=== PATIENT | female | born 2000 | race Caucasian/White ===

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

== ENCOUNTER 2022-04-23 13:58 | Emergency (ER) | payer OTHER, SELFPAY ==
[2022-04-23 14:05] VITALS: BP 129/72; PULSE 83; RESP 16; TEMP 36.8; O2SAT 99; BMI 16.9
--- NOTE | 2022-04-23 14:19 | CT_ITS ---
FINAL REPORT TECHNIQUE: After the administration of intravenous contrast, axial images were obtained through the abdomen and pelvis by computed tomography. This study was performed with technique to keep radiation doses as low as reasonably achievable, (ALARA). Individualized dose reduction techniques using automated exposure control or adjustment of the MA and/or KV according to the patient's size were employed. CLINICAL HISTORY: LLQ pain, bloody bowel movement FINDINGS: Abdomen: The lung bases are clear. The liver is normal in size and attenuation. There is nonspecific gallbladder wall thickening. The spleen is unremarkable. The adrenals are normal. The pancreas is unremarkable. The kidneys enhance appropriately. The aorta is normal in caliber. There is no free fluid or adenopathy. A large amount of stool seen throughout the colon. Pelvis: The appendix is not well visualized. There are no secondary findings of appendicitis. The uterus is heterogeneous but nonspecific. There is a probable small cyst in the right ovary. There is a small amount of pelvic free fluid which may be physiologic or reactive. The urinary bladder is unremarkable. IMPRESSION: Large amount of stool throughout the colon. Probable small right ovarian cyst with small amount of pelvic free fluid which may be physiologic or reactive. Nonspecific gallbladder wall thickening. Reviewed, Interpreted and Dictated by Collin Kaplan III, MD Transcribed by Priscilla Mckinnon Authenticated and [facility]
--- NOTE | 2022-04-23 14:20 | HMH.EDGENADL ---
ED Disposition Clinical Impression: Rectal bleed Disposition: Home, Self-Care Condition on Discharge: Good Additional Instructions: At this time it was felt you are safe to be discharged home. If new or worsening symptoms please do not hesitate to return to the emergency department. Please follow-up with your family doctor on Tuesday. Referrals: Atul Tai MD [Primary Care Provider] - - Critical Care Critical Care Time: No Attestation: On 04/23/22, the high probability of a clinically significant, sudden or life threatening deterioration of the following system(s) required my full and direct attention, intervention and personal management. The time I documented below is in addition to time spent performing reported procedures but includes the following listed in this critical care notation. Medical Decision Making - Kana Inquiry Pt receiving controlled substance: No Vital Signs: 04/23/22 14:05 04/23/22 14:30 04/23/22 15:01 Temperature 98.2 F Temperature Source Oral Pulse Rate 63 69 Pulse Rate [Right Radial] 83 Respiratory Rate 16 Blood Pressure 112/65 107/55 L Blood Pressure [Right Arm] 129/72 Blood Pressure Mean 80 73 Blood Pressure Mean [Right Arm] 91 Blood Pressure Source [Right Arm] Automatic Cuff Blood Pressure Position [Right Arm] Sitting 02 Sat by Pulse Oximetry 99 100 99 Oxygen Delivery Method Room Air Room Air 04/23/22 15:51 Temperature Temperature Source Pulse Rate 61 Pulse Rate [Right Radial] Respiratory Rate Blood Pressure 113/68 Blood Pressure [Right Arm] Blood Pressure Mean 79 Blood Pressure Mean [Right Arm] Blood Pressure Source [Right Arm] Blood Pressure Position [Right Arm] 02 Sat by Pulse Oximetry 99 Oxygen Delivery Method Room Air - Lab Data Lab Results 04/23/22 14:17: Stool Occult Blood Negative 04/23/22 14:25: WBC 6.0, RBC 4.32, Hgb 13.9, Hct 43.1, MCV 99.7 H, MCH 32.1 H, MCHC 32.2, RDW 12.9, Plt Count 333, MPV 7.7, Neut % (Auto) 65.2, Lymph % (Auto) 24.9, [place] % (Auto) 4.9, Eos % (Auto) 3.9, Baso % (Auto) 1.1, Neut # (Auto) 3.9, Lymph # (Auto) 1.5, [place] # (Auto) 0.3, Eos # (Auto) 0.2, Baso # (Auto) 0.1 04/23/22 14:25: Sodium 138, Potassium 3.7, Chloride 105, Carbon Dioxide 28, Anion Gap 8.7, BUN 7, Creatinine 0.80, Estimated Creat Clear 83, Estimated GFR 92, Est GFR ( Amer) 112, Glucose 93, Calcium 9.5, Total Bilirubin 0.2, AST 27, ALT 18, Alkaline Phosphatase 25 L, Total Protein 7.5, Albumin 4.4, Globulin 3.1, Albumin/Globulin Ratio 1.4 04/23/22 14:25: PT 12.2, INR 1.09 04/23/22 14:25: Serum HCG, Qual Negative 04/23/22 14:55: Lactate 1.2 Result diagrams: 04/23/22 14:25 04/23/22 14:25 Orders (Tests/Meds): ED MEDICATIONS Discontinued Medications Generic Name Dose Route Start Last Admin Trade Name Freq PRN Reason Stop Dose Admin Acetaminophen 500 mg 04/23/22 14:19 04/23/22 14:59 Acetaminophen 500mg Tab PO 04/23/22 14:20 500 mg ONCE ONE Administration Iopamidol 75 ml 04/23/22 15:37 04/23/22 15:38 Iopamidol-370 (76%);100ml Bottle IV 04/23/22 15:38 75 ml ONCE ONE Administration Sodium Chloride 10 ml 04/23/22 15:37 04/23/22 15:38 Sodium Chloride 0.9% 10ml Syr (Rad Only) IV 04/23/22 15:38 10 ml ONCE ONE Administration Medical Decision Narrative: In summary patient is a 21-year-old female with past medical history described below presents emergency department for evaluation of blood in her stool. Patient's hemodynamically stable nontoxic-appearing upon arrival. Differential diagnosis includes internal hemorrhoids, menstruation, colitis, diverticulosis, among others. Initial work-up will be conducted with hematologic labs, stool occult blood, CT of the abdomen pelvis with IV contrast. Work-up is reviewed by me, hematologic labs are nonactionable, occult blood negative, CT the abdomen pelvis shows no acute pathology that would explain the patient's symptoms. There is evidence of a thi
[2022-04-23 14:23] LABS: Occult Blood,Stool Negative (Negative)
[2022-04-23 14:30] VITALS: BP 112/65; PULSE 63; O2SAT 100
[2022-04-23 14:36] VITALS: BMI 16.9
[2022-04-23 14:37] LABS: Basophils # 0.1 K/mm3 (0-0.2); Basophils % 1.1 % (0.1-2.0); Eosinophils # 0.2 K/mm3 (0.0-0.4); Eosinophils % 3.9 % (0.1-12.0); Hematocrit 43.1 % (37.0-47.0); Hemoglobin 13.9 g/dL (12.2-16.2); Lymphocytes # 1.5 K/mm3 (0.7-4.5); Lymphocytes % 24.9 % (10-50); Mean Corpuscular HGB Conc 32.2 g/dL (31.8-35.4); Mean Corpuscular Hemoglobin 32.1 pg (27.0-31.2); Mean Corpuscular Volume 99.7 fl (81-99); Mean Platelet Volume 7.7 fl (7.4-10.4); Monocytes # 0.3 K/mm3 (0.1-1.0); Monocytes % 4.9 % (1.7-9.3); Neutrophils # 3.9 K/mm3 (1.8-7.8); Neutrophils % 65.2 % (37.0-80.0); Platelet Count 333 K/mm3 (142-424); Red Blood Count 4.32 M/mm3 (4.20-5.40); Red Cell Distribution Width 12.9 % (11.5-17.5)
[2022-04-23 14:41] LABS: Alanine Aminotransferase 18 U/L (12-78); Albumin Level 4.4 g/dl (3.5-5.0); Albumin/Globulin Ratio 1.4 (1.1-1.8); Alkaline Phosphatase 25 U/L (38-126); Anion Gap 8.7 mEq/L (5-15); Aspartate Amino Transferase 27 U/L (14-36); Bilirubin,Total 0.2 mg/dl (0.2-1.3); Blood Urea Nitrogen 7 mg/dl (7-17); Calcium 9.5 mg/dl (8.4-10.2); Carbon Dioxide 28 mmol/L (22.0-30.0); Chloride 105 mmol/L (98-107); Creatinine Clearance Estimated 83 mL/min (50-200); Estimated Glomerular Filt Rate 92 ml/min (>60); GFR (African American) 112 ML/MIN (>60); Globulin 3.1 g/dL (1.3-3.2); Glucose 93 mg/dl (74-100); Potassium 3.7 mmoL/L (3.5-5.1); Sodium 138 mmol/L (136-145); Total Protein,Serum 7.5 g/dl (6.3-8.2)
[2022-04-23 14:44] LABS: INR 1.09 (0.9-1.1); Prothrombin Time 12.2 seconds (10.1-12.5)
--- NOTE | 2022-04-23 14:48 | HMH.ITSTN ---
spoke to BLANCA hathaway about getting HCG on patient prior for the ct scan
--- NOTE | 2022-04-23 14:56 | PC.NURSE ---
lactic acid tube drawn and sent to lab at this time.
[2022-04-23 15:01] VITALS: BP 107/55; PULSE 69; O2SAT 99
[2022-04-23 15:15] LABS: HCG Qualitative, Serum Negative (Negative)
[2022-04-23 15:18] LABS: Lactic Acid 1.2 mmol/L (0.7-2.1)
--- NOTE | 2022-04-23 15:37 | PC.NURSE ---
pt return from radiology
[2022-04-23 15:51] VITALS: BP 113/68; PULSE 61; O2SAT 99
--- NOTE | 2022-04-23 15:54 | PC.NURSE ---
rounded on pt at this time, pt resting in bed, mother at BS. Pt states no needs at this time. updated pt that we are waiting on Ct scan results. Will continue to monitor
--- NOTE | 2022-04-23 16:45 | PC.NURSE ---
preliminary CT result given to KERRY ARREDONDO
[2022-04-23 17:25] VITALS: BP 124/73; PULSE 69; RESP 15; TEMP 36.8; O2SAT 99
== END 2022-04-23 17:31 | disposition home or self-care (01) ==
PROVIDERS: Emergency Provider Emergency Medicine; PCP Internal Medicine Adolescent Medicine
DX: K62.5 Hemorrhage of anus and rectum (principal); N83.209 Unspecified ovarian cyst, unspecified side; R19.7 Diarrhea, unspecified; Z79.890 Hormone replacement therapy; Z88.1 Allergy status to other antibiotic agents; Z88.3 Allergy status to other anti-infective agents; Z82.49 Family history of ischemic heart disease and other diseases of the circulatory system; Z85.6 Personal history of leukemia; Z80.9 Family history of malignant neoplasm, unspecified
CPT/HCPCS: 74177; 80053; 82272; 83605; 84703; 85025; 85610; 99283; G0328; Q9967

== ENCOUNTER → 2022-08-03 09:36 | Outpatient (CLI) | payer OTHER, SELFPAY ==
[2022-08-03 10:15] LABS: Basophils # 0.1 K/mm3 (0-0.2); Eosinophils # 0.2 K/mm3 (0.0-0.4); Eosinophils % 3.9 % (0.1-12.0); Hematocrit 41.3 % (37.0-47.0); Hemoglobin 13.4 g/dL (12.2-16.2); Lymphocytes # 1.5 K/mm3 (0.7-4.5); Lymphocytes % 28.4 % (10-50); Mean Corpuscular HGB Conc 32.3 g/dL (31.8-35.4); Mean Corpuscular Volume 99.1 fl (81-99); Monocytes # 0.3 K/mm3 (0.1-1.0); Monocytes % 5.5 % (1.7-9.3); Neutrophils # 3.3 K/mm3 (1.8-7.8); Neutrophils % 61.2 % (37.0-80.0); Platelet Count 306 K/mm3 (142-424); Red Blood Count 4.17 M/mm3 (4.20-5.40); Red Cell Distribution Width 12.3 % (11.5-17.5); White Blood Count 5.4 K/mm3 (4.5-13.0)
[2022-08-03 10:30] LABS: Chloride 104 mmol/L (98-107); Potassium 3.8 mmoL/L (3.5-5.1); Sodium 141 mmol/L (136-145)
[2022-08-03 10:32] LABS: Alanine Aminotransferase 16 U/L (12-78); Aspartate Amino Transferase 24 U/L (14-36); Blood Urea Nitrogen 9 mg/dl (7-17); Estimated Glomerular Filt Rate 107 ml/min (>60); GFR (African American) 129 ML/MIN (>60)
[2022-08-03 10:33] LABS: Albumin Level 4.2 g/dl (3.5-5.0); Albumin/Globulin Ratio 1.4 (1.1-1.8); Alkaline Phosphatase 24 U/L (38-126); Anion Gap 13.8 mEq/L (5-15); Bilirubin,Total 0.3 mg/dl (0.2-1.3); Calcium 9.3 mg/dl (8.4-10.2); Carbon Dioxide 27 mmol/L (22.0-30.0); Globulin 2.9 g/dL (1.3-3.2); Glucose 81 mg/dl (74-100); Total Protein,Serum 7.1 g/dl (6.3-8.2)
== END ==
PROVIDERS: PCP Family Medicine; Visit Provider Family Medicine
DX: R55 Syncope and collapse (principal); E16.2 Hypoglycemia, unspecified
CPT/HCPCS: 36415; 80053; 84443; 85025

== ENCOUNTER 2024-09-12 10:33 | Emergency (ER) | payer OTHER, SELFPAY ==
[2024-09-12 10:58] VITALS: BP 126/79; PULSE 98; RESP 16; TEMP 37.1; O2SAT 97; BMI 19.0
[2024-09-12 11:04] LABS: UTC Influenza A Antigen Positive (Negative); UTC Influenza B Antigen Negative (Negative)
--- NOTE | 2024-09-12 11:07 | ED_ITS ---
Discharge Plan Disposition Patient Disposition: Home, Self-Care Condition: Good Prescriptions Prescriptions: New oseltamivir [Tamiflu] 75 mg capsule 75 mg PO BID 5 Days Qty: 10 0RF jhhccabapikpgja-retijhtec-FV [Bromfed DM] 2-30-10 mg/5 mL Syrup 5 ml PO Q6H PRN (Reason: Cough) Qty: 240 0RF ondansetron 4 mg Tablet,Disintegrating 4 mg PO Q8H PRN (Reason: Nausea) Qty: 12 0RF No Action norethindrone-e.estradiol-iron [Taytulla] 1 mg-20 mcg (24)/75 mg (4) capsule 1 cap PO DAILY Qty: 28 11RF hydroxyzine HCl 25 mg tablet 25 mg PO DAILY Referrals Follow up/Referrals: Jessica Chilel PA [Primary Care Provider] - See instructions Activity Restrictions/Add. Instructions Additional Instructions/Restrictions: Drink plenty of fluids. Take tylenol or ibuprofen for pain or fever. Take the medications as directed. Follow up with your regular doctor. GO TO THE ER FOR ANY WORSENING SYMPTOMS Clinical Impressions Clinical Impression: Influenza A Stand Alone Forms Stand Alone Forms: Work/School Release Instructions Patient Instructions: Influenza, DI for Influenza -- Adult, Oseltamivir Print Language Print Language: Maltese Discharge ED Provider: James Lew [facility] General Stated complaint: cough, runny nose, body aches, chills Mode of Arrival: Ambulatory Source of Information: Patient Time Seen by Provider: 09/12/24 11:04 Description of Symptoms (Recalled from Triage Doc. by RN): FLU S/S, FEVERS BA HEENT Symptoms (Recalled from RN notes): Yes Resp Symptoms (Recalled from RN notes): Yes Skin Symptoms (Recalled from RN notes): No MS Symptoms (Recalled from RN notes): No Functional Status (Recalled from RN notes): WNL Related Data Home Medications ?Medication ?Instructions ?Recorded ?Confirmed hydroxyzine HCl 25 mg tablet 25 mg PO DAILY 09/12/24 09/12/24 Previous Rx's ?Medication ?Instructions ?Recorded norethindrone 1 mg-ethin. 1 cap PO DAILY #28 caps 08/28/21 estradiol 20 mcg (24)-iron 75 mg (4) capsule (Taytulla) aeehjljbrmbpzkl-bzgekxdfjwsexqi-LD 5 ml PO Q6H PRN Cough #240 mL 09/12/24 2 mg-30 mg-10 mg/5 mL oral syrup (Bromfed DM) ondansetron 4 mg disintegrating 4 mg PO Q8H PRN Nausea #12 tabs 09/12/24 tablet oseltamivir 75 mg capsule (Tamiflu) 75 mg PO BID 5 days #10 caps 09/12/24 Allergies Allergy/AdvReac Type Severity Reaction Status Date / Time ceftriaxone (From Rocephin) Allergy Mild rash Verified 09/15/20 09:56 Worker's Comp Is this a Worker's Comp case?: No [facility] Disclaimer: The information contained in this section may have been updated after the patient was seen, as this information can be updated by other users. Social History Smoking Status: Never smoker alcohol intake: never substance use type: denies use current occupational status: student Travel in the last 8 weeks: None Have you lived/traveled outside US in past 30 days?: No Contact w/someone who lives/traveled outside US past 30 days?: No Exposure to someone with infectious disease in past 14 days?: No Do you have a fever (greater than 100.4 F or 38 C)?: No Have you tested positive for COVID-19: No Exposed to someone with COVID-19 in past 14 days?: No Do you have a sore throat?: No Do you have a cough?: Yes Do you have any weakness?: No Do you have any diarrhea?: No Are you experiencing any unusual bleeding?: No Do you have any muscle aches/pain?: Yes Do you have any abdominal pain?: No Are you experiencing loss of taste or smell?: No ROS Obtained: Yes All systems reviewed & no additional complaints except as documented Constitutional Constitutional: Reports chills and Reports fever(s) Eyes Eyes: Denies eye discharge ENT Ears, Nose, Mouth, and Throat: Reports as per HPI Cardiovascular Cardiovascular: Denies chest pain Respiratory Respiratory: Denies chest congestion and Reports cough Gastrointestinal Gastrointestingal: Reports nausea; Denies abdominal pain, constipation, cramping, diarrhea or vomiting Musculoskeletal Musculoskeletal: Denies arthralgias Integumentary/Breasts Skin/Breast: Denies rash Neurologic Neurologic: Denies paresthesias Physical Exam General General appearance: alert and in no apparent distress Head Head exam: atraumatic, normocephalic and normal inspection Eye Eye exam: Present normal appearance, PERRL and EOMI ENT ENT exam: Present mucous membranes moist and normal external ear exam Expanded ENT Exam TM/Canal exam: Bilateral TM: erythema and bulging Nose exam: Absent sinus tenderness Mouth exam: Present normal external inspection; Absent drooling Teeth exam: Present normal inspection Throat exam: Present tonsillar erythema, tonsillomegaly and tonsillar exudate Neck Neck exam: Present normal inspection, full ROM and trachea midline; Absent tenderness, meningismus or lymphadenopathy Chest Chest inspection: Present normal inspection and symmetric chest wall rise; Absent tenderness Respiratory Respiratory exam: Present normal lung sounds bilaterally; Absent respiratory distress, wheezes, stridor or accessory muscle use Cardiovascular Cardiovascular exam: Present regular rate and normal rhythm; Absent systolic murmur or diastolic murmur Abdominal Exam Abdominal exam: Present soft and normal bowel sounds; Absent distention, tenderness, guarding, rebound or rigidity Extremities Exam Extremities exam: Present normal inspection and normal capillary refill; Absent calf tenderness Back Exam Back exam: Present normal inspection and full ROM; Absent tenderness, CVA tenderness (R) or CVA tenderness (L) Neurological Exam Neurological exam: Present alert, oriented X3 and CN II-XII intact Psychiatric Psychiatric exam: Present normal affect and normal mood Skin Skin exam: Present warm, dry, intact and normal color Medical Decision Making Medical Records Medical records reviewed: No I reviewed the patient's medical records. Screening: Per USPSTF and CDC recommendations, given the prevalence of disease in our region, it is our hospital?s policy to screen for HIV and viral Hepatitis for all patients aged 18 and over and those with ongoing risk factors. Kana Inquiry Pt receiving controlled substance: No Vital Signs: 09/12/24 10:58 Temperature 98.8 F Temperature Source Oral Pulse Rate [Left Radial] 98 H Respiratory Rate 16 Blood Pressure [Left Arm] 126/79 Blood Pressure Mean [Left Arm] 94 02 Sat by Pulse Oximetry 97 Lab Data Lab results reviewed: Yes I reviewed the patient's lab results. Lab Results 09/12/24 10:55: Influenza Type A Ag Positive A, Influenza Type B Ag Negative
[2024-09-12 11:53] VITALS: BP 126/79; PULSE 98; RESP 16; TEMP 37.1
== END 2024-09-12 12:04 | disposition home or self-care (01) ==
PROVIDERS: Emergency Provider Nurse Practitioner Family; PCP Physician Assistant
DX: J09.X2 Influenza due to identified novel influenza A virus with other respiratory manifestations (principal); R50.9 Fever, unspecified; R05.9 Cough, unspecified; R11.0 Nausea
CPT/HCPCS: 87804; 99212; G0381

== ENCOUNTER 2025-08-06 15:49 | Emergency (ER) | payer OTHER, SELFPAY ==
--- OUTSIDE RECORDS SUMMARY | 2024-08-08 04:15 | XMS_ITS ---
Author Organization [facility] Address [address] [facility] [address] [place] [id number] Care Team Providers Care Diagnostic Sales Specialist Name Role Phone Darek Mg Primary Care Provider Jessica Chilel Unavailable [phone] Allergies Allergen (clinical drug ingredient) Drug/Non Drug Allergy documented on EMR Reaction Allergy Type Onset Date Status amoxicillin Amoxicillin itching/welts Drug Allergy Active Medicinal cephalosporin and acting as antibacterial agent (FN) Cephalosporins rash Drug Allergy Active REASON FOR VISIT Anxiety Medications Medication SIG (Take, Route, Fr equency, Duration) Notes Start Date End Date Status hydrOXYzine HCl 25 MG 1 tablet Orally fo ur times a day as needed 08/08/2024 Active Strattera 40 MG 1 capsule in the mor paula Orally Once a day; Duration: 30 day(s) 08/08/2024 Active Vienva 0.1-20 MG-MCG 1 tab(s) orally onc e a day; Duration: 90 days Active Problems Problem Type SNOMED Code ICD Code Onset Dates Problem Status W/U Status Risk Notes Problem Panic disorder (557815365) Panic attacks (F41.0) Active confirmed Vital Signs Weight 113.8 lbs 08/08/2024 Blood pressure systolic 110 mm Hg 08/08/20 24 Blood pressure diastolic 72 mm Hg 024 Heart Rate 70 /min 08/08/2024 Height 64.50 in 08/08/2024 BMI 19.23 kg/m2 08/08/2024 Encounters Encounter Location Date Provider Diagnosis [facility] [address] [place], [place] [id number] 08/08/2024 Jessica Chilel Attention deficit hyperactivity disorder (ADHD), unspecified ADHD type F90.9 and Panic attacks F41.0 Assessments Encounter Date Diagnosis (ICD Code) Assessment Notes Treatment Notes Treatment Clinical Notes Section Notes 08/08/2024 Attention deficit hyperactivity disorder (ADHD), unspecified ADHD type (ICD-10 - F90.9) Was on strattera in the past and did well with it. Will start back on this and see how she does. May have to add prozac as well as this was the combo she was taking in the past. 08/08/2024 Panic attacks (ICD-10 - F41.0) Will only take hydroxyzine if she has a panic attack. She was taking it once a day in the past and it was making her tired. Plan Of Treatment Medication Medication Name Sig Start Date Stop Date Notes hydrOXYzine HCl 25 MG 1 tablet Orally fo ur times a day as needed 08/08/2024 Strattera 40 MG 1 capsule in the mor paula Orally Once a day; Duration: 30 day(s) 08/08/2024 Treatment Notes Assessment Notes Attention deficit hyperactiv ity disorder (ADHD), unspecified ADHD type Was on strattera in the past and did wel l with it. Will start back on this and see how she does. May have to add prozac as well as this was the combo she was taking in the past. Panic attacks Will only take hydro xyzine if she has a panic attack. She was taking it once a day in the past and it was making her tired. Next Appt Details Follow Up: 3 Weeks, Reason: Provider Name:Jessica Whitney Emelia y, 08/28/2025 10:00:00 AM, [address] [facility] [address] [facility], [address], [place], [id number], Progress Notes * NORMA CABALLERODOB:[birth year] (25 yo F)Acc No.[id number]:08/08/2024 Progress Notes Patient: Whitney JESSENORMA Provider: VÍCTOR Cooper :2000 A ge:24 Y S ex:Female Date:08/08/2024 Address:[address] [place], [id number] Pcp:Darek Mg Subjective: * Chief Complaints: * 1 . Anxiety. * HPI: P sychology: 24 year old female presents with c/o Anxiety P t complains of having panic attacks over the last couple months. Pt states she tends to have them when she is walking to class or archery practice. Pt states they are hard to get through . Pt states she gets really clammy, tunnel vision and it feels like someone is squeezing chest . Pt states she was on hydroxyzine last year for anxiety and it did help but it made her too tired, she was falling asleep in class. c/o ADD/ADHD P t complains of having a really hard time focusing in school. Pt states she is failing in school and on the verge of losing her scholarship . * ROS: D ERMATOLOGY: no R gianfranco. n o H sanaz. G ASTROENTEROLOGY: no N ausea. n o V omiting. U ROLOGY: no D ifficulty urinating. n o B lood in urine. * Medical History: L eukemia- Remission 10/2006, Depression, Anxiety, ADHD. * Surgical History: S marlene Tap- ultiple , Bone Marrow Biopsy x 2 , Shoulder Port Placement 07/2004, Port Removed 01/2007. * Hospitalization/Major Diagno stic Procedure: P assing Out- [facility] ER 02/29/2020. * Family History: F ather: alive, drug addiction. M other: alive. P aternal Grand Father: alive. P aternal Grand Mother: alive. pt endy is biological paternal grandmother. * Social History: C URRENT TOBACCO USE S moking Status: P atient does NOT smoke. C affeine: yes, frequency: small amount. Home smoke detector use: yes. Past smoking status: no, Second hand smoke exposure: No. * Medications: T aking Vienva 0.1-20 MG-MCG Tablet 1 tab(s) orally once a day , Discontinued hydrOXYzine HCl 25 MG Tablet 1 tablet as needed Orally Once a day , Discontinued buPROPion HCl 100 MG Tablet 1 tablet Orally Twice a day , Discontinued PROzac 10 MG Capsule 1 cap(s) orally once a day , Discontinued Atomoxetine HCl 60 MG Capsule 1 capsule in the morning Orally Once a day , Medication List reviewed and reconciled with the patient * Allergies: C ephalosporins: rash, Amoxicillin: itching/welts. Objective: * Vitals: W t:113.8, Temp:97.8, BP:110/72, HR:70, Nurse:da, Ht: 64.50, BMI:19.23. * Examination: P sychology: General Appearance: N AD. G rooming : a dequate.?Eye contact : decreased. M ood : p leasant. H eart: R SR. L ungs: c lear to auscultation. N eurologic Exam: I ntact, gait normal. Assessment: * Assessment: 1. A ttention deficit hyperactivity disorder (ADHD), unspecified ADHD type - F90.9 (Primary)? 2. P anic attacks - F41.0 Plan: * Treatment: 2. P anic attacks Start hydrOXYzine HCl Tablet, 25 MG, 1 tablet, Orally, four times a day as needed, 30, Refills 1.? Notes: Will only take hydroxyzine if she has a panic attack. She was taking it once a day in the past and it was making her tired. * Follow Up: 3 Weeks * Images: Billing Information: * Visit Code: 02798 Office Visit, Est Pt., Level 3. * Procedure Codes: * Electronic signature of VÍCTOR Gomes on 08/06/2025 at 04:32 PM EST Sign off status: Pending * Provider: VÍCTOR Cooper Date: 10/08/2023 Generated for Yoko smith/Hyacinth/Baldoitting on: 10/06/2024 04:32 PM EST History and Physical Notes * HPI (History of Present Illness) Category Sub-Category Detail Notes Category Not es Psychology Anxiety Pt complains of having panic attacks over the last couple months. Pt states she tends to have them when she is walking to class or archery practice. Pt states they are hard to get through . Pt states she gets really clammy, tunnel vision and it feels like someone is squeezing chest . Pt states she was on hydroxyzine last year for anxiety and it did help but it made her too tired, she was falling asleep in class ADD/ADHD Pt complains of sid smith a really hard time focusing in school. Pt states she is failing in school and on the verge of losing her scholarship Examination Category Sub-Category Detail Notes Category Not es Psychology Heart: RSR Lungs: clear to auscultatio n General Appearance: NAD Neurologic Exam: Intact, gait normal Grooming : adequate Eye contact : decreased Mood : pleasant
--- OUTSIDE RECORDS SUMMARY | 2024-08-29 04:00 | XMS_ITS ---
Author Organization [facility] Address [address] [facility] [address] [place] [id number] Care Team Providers Care Single Needle Tufting Machine Operator Name Role Phone Darek Mg Primary Care Provider Jessica Chilel [phone] Allergies Allergen (clinical drug ingredient) Drug/Non Drug Allergy documented on EMR Reaction Allergy Type Onset Date Status amoxicillin Amoxicillin itching/welts Drug Allergy Active Medicinal cephalosporin and acting as antibacterial agent (FN) Cephalosporins rash Drug Allergy Active REASON FOR VISIT 3 weeks Medications Medication SIG (Take, Route, Fr equency, Duration) Notes Start Date End Date Status Strattera 40 MG 1 capsule in the mor paula Orally Once a day; Duration: 90 days Active hydrOXYzine HCl 25 MG 1 tablet Orally fo ur times a day as needed Active Vienva 0.1-20 MG-MCG 1 tab(s) orally onc e a day; Duration: 90 days Active Vital Signs Weight 116.0 lbs 08/29/2024 Blood pressure systolic 110 mm Hg 08/29/20 24 Blood pressure diastolic 70 mm Hg 024 Heart Rate 58 /min 08/29/2024 Height 64.50 in 08/29/2024 BMI 19.60 kg/m2 08/29/2024 Encounters Encounter Location Date Provider Diagnosis [facility] [address] [facility] [address] [place] [id number] 08/29/2024 Jessica Chilel Attention deficit hyperactivity disorder (ADHD), unspecified ADHD type F90.9 and Panic attacks F41.0 Assessments Encounter Date Diagnosis (ICD Code) Assessment Notes Treatment Notes Treatment Clinical Notes Section Notes 08/29/2024 Attention deficit hyperactivity disorder (ADHD), unspecified ADHD type (ICD-10 - F90.9) Doing well. Will take it with food. Will f/u in 3 months. 08/29/2024 Panic attacks (ICD-10 - F41.0) Plan Of Treatment Medication Medication Name Sig Start Date Stop Date Notes Strattera 40 MG 1 capsule in the mor paula Orally Once a day; Duration: 90 days hydrOXYzine HCl 25 MG 1 tablet Orally fo ur times a day as needed Treatment Notes Assessment Notes Attention deficit hyperactiv ity disorder (ADHD), unspecified ADHD type Doing well. Will take it with food. Will f/u in 3 months. Next Appt Details Follow Up: 3 Months, Reason: Provider Name:Jessica Kapoor y, 08/28/2025 10:00:00 AM, [address] [facility] [address] [facility], [address] , [place], [place], [id number], Progress Notes * NORMA CABALLERODOB:[birth year] (25 yo F)Acc No.[id number]:08/29/2024 Progress Notes Patient: NORMA SCHNEIDER Provider: VÍCOTR Cooper :2000 A ge:24 Y S ex:Female Date:08/29/2024 Address:[facility] [address], [facility], [id number] Pcp:Darek Mg Subjective: * Chief Complaints: * 1 . 3 weeks. * HPI: P sychology: The patient is here for a check up on Anxiety. Pt states she is doing better except for some nausea with the Strattera. Pt states she has also had some left eye twitching for about a week. * ROS: D ERMATOLOGY: no R gianfranco. n o H sanaz. G ASTROENTEROLOGY: no N ausea. n o V omiting. n o D iarrhea.? U ROLOGY: no D ifficulty urinating. n o B lood in urine. * Medical History: L eukemia- Remission 10/2006, Depression, Anxiety, ADHD. * Surgical History: S marlene Tap- ultiple , Bone Marrow Biopsy x 2 , Shoulder Port Placement 07/2004, Port Removed 01/2007. * Hospitalization/Major Diagno stic Procedure: P assing Out- [facility] ER 02/29/2020. * Family History: F ather: [...] 1 tab(s) orally once a day , Taking Strattera 40 MG Capsule 1 capsule in the morning Orally Once a day , Taking hydrOXYzine HCl 25 MG Tablet 1 tablet Orally four times a day as needed , Medication List reviewed and reconciled with the patient * Allergies: C ephalosporins: rash, Amoxicillin: itching/welts. Objective: * Vitals: W t:116.0, Temp:98.9, BP:110/70, HR:58, Nurse:ISAEL, Ht: 64.50, BMI:19.60. * Examination: P sychology: General Appearance: N [...] Plan: * Treatment: 2. P anic attacks Continue hydrOXYzine HCl Tablet, 25 MG, 1 tablet, Orally, four times a day as needed. * Follow Up: 3 Months * Images: Billing Information: * Visit Code: 55382 Office Visit, Est Pt., Level 3. * Procedure Codes: * Electronic signature of VÍCTOR Gomes on 08/06/2025 at 04:33 PM EST Sign off status: Pending * Provider: VÍCTOR Cooper Date: 10/30/2023 Generated for Yoko smith/Hyacinth/eTransmitting on: 10/06/2024 04:33 PM EST History and Physical Notes * Examination Category Sub-Category Detail Notes Category Not es Psychology Heart: RSR Lungs: clear to auscultatio n General Appearance: NAD Neurologic Exam: Intact, gait normal Grooming : adequate Eye contact : decreased Mood : pleasant
--- OUTSIDE RECORDS SUMMARY | 2025-06-27 08:30 | XMS_ITS ---
Author Organization [facility] Address [address] [facility] [address] [place] [id number] Care Team Providers Care Tong Hooker Name Role Phone Darek Mg Primary Care Provider [phone] Jessica Chilel [phone] Allergies Allergen (clinical drug ingredient) Drug/Non Drug Allergy documented on EMR Reaction Allergy Type Onset Date Status amoxicillin Amoxicillin itching/welts Drug Allergy Active Medicinal cephalosporin and acting as antibacterial agent (FN) Cephalosporins rash Drug Allergy Active REASON FOR VISIT rash Medications Medication SIG (Take, Route, Frequency, Duration) Notes Start Date End Date Status Qelbree 200 MG 1 capsule Orally Onc e a day 06/28/2025 Active Vienva 0.1-20 MG-MCG 1 tab(s) orally onc e a day; Duration: 90 days Active hydrOXYzine HCl 25 MG 1 tablet Orally fo ur times a day as needed; Duration: 90 days Active Clotrimazole-Betametha sone 1-0.05 % 1 application Externally Twice a day 06/27/2025 Active Strattera 40 MG 1 capsule in the morning Orally Once a day; Duration: 30 days pt needs appt Active Vital Signs Weight 104.2 lbs 06/27/2025 Blood pressure systolic 102 mm Hg 06/27/20 25 Blood pressure diastolic 76 mm Hg 025 Heart Rate 58 /min 06/27/2025 Height 64.50 in 06/27/2025 BMI 17.61 kg/m2 06/27/2025 Encounters Encounter Location Date Provider Diagnosis [facility] [address] [facility] [address] [place] [id number] 06/27/2025 Jessica Chilel Rash R21 and Attenti on deficit hyperactivity disorder (ADHD), unspecified ADHD type F90.9 Assessments Encounter Date Diagnosis (ICD Code) Assessment Notes Treatment Notes Treatment Clinical Notes Section Notes 06/27/2025 Rash (ICD-10 - R21) 06/27/2025 Attention deficit hyperactivity disorder (ADHD), unspecified ADHD type (ICD-10 - F90.9) Gave samples of medication. If this works she will call and I will send a rx. Plan Of Treatment Medication Medication Name Sig Start Date Stop Date Notes Qelbree 200 MG 1 capsule Orally Once a day 06/28/2025 Clotrimazole-Betamethasone 1-0.05 % 1 application Externally Twice a day 06/27/2025 Strattera 40 MG 1 capsule in the mor paula Orally Once a day; Duration: 90 days Treatment Notes Assessment Notes Attention deficit hyperactiv ity disorder (ADHD), unspecified ADHD type Gave samples of medication. If this works she will call and I will send a rx. Next Appt Details Follow Up: via phone to repo rt progress, Reason: Provider Name:Jessica Kapoor y, 08/28/2025 10:00:00 AM, [address] [facility] [address] [facility], [address], [place], [id number], Progress Notes * NORMA CABALLERODOB:[birth year] (25 yo F)Acc No.[id number]:06/27/2025 Progress Notes Patient: NORMA SCHNEIDER Provider: VÍCTOR Cooper :2000 A ge:24 Y S ex:Female Date:06/27/2025 Address:[address], [place], [id number] Pcp:Darek Mg Subjective: * Chief Complaints: * 1 . Rash. * HPI: D ermatology: 24 year old female presents with c/o rash P t states she has a rash on both hands. Pt states it was on both ankles but now has resolved. Pt states the rash does hurt and only itches if she touches it. . P sychology: Patient would also like different ADHD medication as what she is taking does not work. * ROS: D ERMATOLOGY: no R gianfranco. [...] Hospitalization/Major Diagno stic Procedure: P assing Out- [facility] ER 02/29/2020. * Family History: F ather: [...] smoke exposure: No. * Medications: T aking hydrOXYzine HCl 25 MG Tablet 1 tablet Orally four times a day as needed , Taking Vienva 0.1-20 MG-MCG Tablet 1 tab(s) orally once a day , Taking Strattera 40 MG Capsule 1 capsule in the morning Orally Once a day , Notes to Pharmacist: pt needs appt, Medication List reviewed and reconciled with the patient * Allergies: C ephalosporins: rash, Amoxicillin: itching/welts. Objective: * Vitals: W t: 104.2, Temp: 97.8, BP: 102/76, HR: 58, Nurse: pe, Ht: 64.50, BMI:17.61. * Examination: G eneral Examination: General Appearance: N AD. H EENT: u nremarkable.?Oral cavity: n o lesions, mucosa moist and WNL, no erythema. N trevin: s upple, no lymphadenopathy. C hest: n ormal shape and expansion. H eart: R SR. L ungs: c lear to auscultation. A bdomen: b owel sounds present, soft and nontender. N eurologic Exam: I ntact, gait normal. S kin: e rythematous linear rash along the right index finger and there is a faint rash on the left index finger. P sychology: Grooming : a dequate. E ye contact : gold youngdinesh. M ood : p leasant. N eurologic Exam: I ntact, gait normal. Assessment: * Assessment: 1. R gianfranco - R21 (Primary) 2 . A ttention deficit hyperactivity disorder (ADHD), unspecified ADHD type - F90.9 Plan: * Treatment: 2. A ttention deficit hyperactivity disorder (ADHD), unspecified ADHD type Stop Strattera Capsule, 40 MG, 1 capsule in the morning, Orally, Once a day, 90 days, 90 Capsule;?Start Qelbree Capsule Extended Release 24 Hour, 200 MG, 1 capsule, Orally, Once a day. ? Notes: Gave samples of medication. If this works she will call and I will send a rx. * Procedure Codes: 1 036F TOBACCO NON-USER, 3074F SYST BP LT 130 MM HG, 3078F DIAST BP < 80 MM HG * Follow Up: v ia phone to report progress * Images: Billing Information: * Visit Code: 23941 Office Visit, Est Pt., Level 4. * Procedure Codes: 1036F TOBACCO NON-USER. 3074F SYST BP LT 130 MM HG. 3078F DIAST BP < 80 MM HG. * Electronic signature of VÍCTOR Gomes on 08/06/2025 at 04:32 PM EST Sign off status: Pending * Provider: VÍCTOR Cooper Date: Generated for Yoko smith/Hyacinth/eTransmitting on: 10/06/2024 04:32 PM EST History and Physical Notes * HPI (History of Present Illness) Category Sub-Category Detail Notes Category Not es Dermatology rash Pt states she samaniego s a rash on both hands. Pt states it was on both ankles but now has resolved. Pt states the rash does hurt and only itches if she touches it. Examination Category Sub-Category Detail Notes Category Not es General Examination HEENT: unremarkable Heart: RSR Lungs: clear to auscultatio n Abdomen: bowel sounds present , soft and nontender General Appearance: NAD Skin: erythematous linear rash along the right index finger and there is a faint rash on the left index finger Neurologic Exam: Intact, gait normal Neck: supple, no lymphaden opathy Oral cavity: no lesions, mucosa m oist and WNL, no erythema Chest: normal shape and exp ansion Psychology Neurologic Exam: Intact, gait normal Grooming : adequate Eye contact : normal Mood : pleasant
[2025-08-06] VITALS (12 sets, daily range): BP systolic 107–142; BP diastolic 69–94; PULSE 52–88; RESP 16–20; TEMP 36.6–36.9; O2SAT 95–100; BMI 17.2
--- NOTE | 2025-08-06 16:24 | HMH.EDGENADL ---
Discharge Plan Disposition Patient Disposition: Xfer Other Prescriptions Prescriptions: No Action atomoxetine 40 mg capsule 40 mg PO DAILY hydroxyzine HCl 25 mg tablet 25 mg PO NEEDED PRN (Reason: Anxiety) Referrals Follow up/Referrals: Jessica Chilel PA [Primary Care Provider, Medical] - See instructions Clinical Impressions Clinical Impression: Suicidal ideation Print Language Print Language: Mohawk Discharge ED Provider: Karl Watson General Adult HPI General Chief complaint: Psychiatric Symptoms Stated complaint: SI Time Seen by Provider: 08/06/25 16:17 Mode of Arrival: Ambulatory Source of Information: Patient Description of Symptoms (Recalled from ER Triage Doc. by RN): pt to the ED with suicidal thoughts. pt is very vague and stated she doesnt have a plan but has thought about possible ways. pt denies any abuse or self harm. pt denies any events leading up to these thoughts and just stated im fed up and dont want to be here anymore pt reports stress with work,school and friends. History of Present Illness HPI narrative: Ozzie Paz is a 25 female with a history of anxiety, depression, ADHD, on atomoxetine and hydroxyzine who presents to the emergency department for complaints of suicidal ideation. Patient states that over the last 2 weeks that she has felt like shit and has been more depressed. She has thoughts of wanting to kill herself via overdose but has not attempted to overdose. She has not attempted to harm herself physically in any way throughout this time period. She does note that she is seen by therapist/mentor and spoke with them today and they recommended she come to the emergency department. Patient denies any auditory or visual hallucinations. Patient denies any abdominal pain, chest pain, nausea, vomiting, diarrhea or urinary symptoms. She reports that she has never attempted to harm herself in the past. She does report increased stress at work, with school and with friends. Related Data Home Medications ?Medication ?Instructions ?Recorded ?Confirmed hydroxyzine HCl 25 mg tablet 25 mg PO NEEDED PRN Anxiety 09/12/24 08/06/25 atomoxetine 40 mg capsule 40 mg PO DAILY 04/15/25 08/06/25 Allergies Allergy/AdvReac Type Severity Reaction Status Date / Time ceftriaxone (From Rocephin) Allergy Mild rash Verified 04/15/25 11:19 [facility] Disclaimer: The information contained in this section may have been updated after the patient was seen, as this information can be updated by other users. Social History Smoking Status: Current every day smoker alcohol intake: never substance use type: denies use current occupational status: student Travel in the last 8 weeks?: None Have you lived/traveled outside US in past 30 days?: No Contact w/someone who lives/traveled outside US past 30 days?: No Exposure to someone with infectious disease in past 14 days?: No Do you have a fever (greater than 100.4 F or 38 C)?: No Have you tested positive for COVID-19?: No Exposed to someone with COVID-19 in past 14 days?: No Do you have a sore throat?: No Do you have a cough?: No Do you have any weakness?: No Do you have any diarrhea?: No Are you experiencing any unusual bleeding?: No Do you have any muscle aches/pain?: No Do you have any abdominal pain?: No Are you experiencing loss of taste or smell?: No Other Medical History Have you received the Flu Vaccine for this season: No Have you received the Pneumonia Vaccine: No ROS Obtained: Yes Systems reviewed as appropriate & no additional complaints except as documented Physical Exam General General appearance: alert and in no apparent distress Head Head exam: atraumatic Eye Eye exam: Present normal appearance ENT ENT exam: Present normal external ear exam Neck Neck exam: Present full ROM Chest Chest inspection: Present symmetric chest wall rise Respiratory Respiratory exam: Present normal lung sounds bilaterally; Absent respiratory distress, wheezes or stridor Cardiovascular Cardiovascular exam: Present regular rate and normal rhythm Abdominal Exam Abdominal exam: Present soft; Absent tenderness or guarding Extremities Exam Extremities exam: Present normal inspection Back Exam Back exam: Present normal inspection Neurological Exam Neurological exam: Present alert and oriented X3 Psychiatric Psychiatric exam: Present depressed, flat affect and suicidal ideation Skin Skin exam: Present warm and dry Medical Decision Making Medical Records Screening: Per USPSTF and CDC recommendations, given the prevalence of disease in our region, it is our hospital?s policy to screen for HIV and viral Hepatitis for all patients aged 18 and over and those with ongoing risk factors. Kana Inquiry Pt receiving controlled substance: No Vital Signs: 08/06/25 15:49 08/06/25 17:00 08/06/25 17:30 Temperature 98 F Temperature Source Oral Pulse Rate 52 L 67 Pulse Rate [Left Radial] 84 Respiratory Rate 16 20 17 Blood Pressure 108/69 L 110/73 Blood Pressure [Right Arm] 142/94 H Blood Pressure Mean [Right Arm] 110 Blood Pressure Source Automatic Cuff Automatic Cuff Blood Pressure Source [Right Arm] Automatic Cuff Blood Pressure Position Sitting Sitting Blood Pressure Position [Right Arm] Sitting 02 Sat by Pulse Oximetry 99 100 100 Oxygen Delivery Method Room Air Room Air Room Air 08/06/25 18:00 Temperature Temperature Source Pulse Rate 71 Pulse Rate [Left Radial] Respiratory Rate 18 Blood Pressure 109/77 L Blood Pressure [Right Arm] Blood Pressure Mean [Right Arm] Blood Pressure Source Automatic Cuff Blood Pressure Source [Right Arm] Blood Pressure Position Sitting Blood Pressure Position [Right Arm] 02 Sat by Pulse Oximetry 100 Oxygen Delivery Method Room Air Lab Data Lab Results 08/06/25 16:23: Urine Color Yellow, Urine Appearance Clear, Urine pH 6.5, Ur Specific [place] 1.020, Urine Protein Negative, Urine Glucose (UA) Negative, Urine Ketones 1+, Urine Blood Negative, Urine Nitrate Negative, Urine Bilirubin Negative, Urine Urobilinogen 0.2, Ur Leukocyte Esterase Negative, Urine RBC 5-10, Urine WBC 10-20, Ur Squamous Epith Cells 20-50, Urine Bacteria 2+, Urine Mucus 2+, Urine HCG, Qual Negative 08/06/25 16:35: WBC 12.4 H, RBC 4.44, Hgb 14.2, Hct 41.8, MCV 94.1, MCH 32.0 H, MCHC 34.0, RDW 11.7, Plt Count 343, MPV 9.8, Neut % (Auto) 77.5, Lymph % (Auto) 15.8, [place] % (Auto) 5.4, Eos % (Auto) 0.6, Baso % (Auto) 0.5, Neut # (Auto) 9.7 H, Lymph # (Auto) 2.0, [place] # (Auto) 0.7, Eos # (Auto) 0.1, Baso # (Auto) 0.1, Sodium 141, Potassium 3.7, Chloride 103, Carbon Dioxide 22, Anion Gap 19.7 H, BUN 16, Creatinine 0.90, Estimated Creat Clear 70, Estimated GFR 78, Est GFR ( Amer) 94, Glucose 88, Calcium 9.5, Total Bilirubin 0.5, AST 32, ALT 21, Alkaline Phosphatase 26 L, Total Protein 8.7 H, Albumin 5.1 H, Globulin 3.6 H, Albumin/Globulin Ratio 1.4, TSH 1.46, Urine Opiates Screen Negative, Urine Methadone Screen Negative, Ur Barbituates Screen Negative, Ur Phencyclidine Scrn Negative, Ur Amphetamines Screen Negative, U Benzodiazepines Scrn Negative, Urine Cocaine Screen Negative, U Marijuana (THC) Screen Negative 08/06/25 16:35 08/06/25 16:35 Orders (Tests/Meds): ORDERS Category Date Time Status CBC w/Auto Diff [Complete Blood Count Auto Diff] Stat Lab 08/06/25 16:35 Completed CMP [Comprehensive Metabolic Panel] Stat Lab 08/06/25 16:35 Completed TSH [Thyroid Stimulating Hormone] Stat Lab 08/06/25 16:35 Completed UA [Urinalysis and Microscopic] Stat Lab 08/06/25 16:23 Completed UDS [Drug Screen,Urine] Stat Lab 08/06/25 16:35 Completed Urine , HCG Qual. Stat Lab 08/06/25 16:23 Completed Urine Culture Stat Micro 08/06/25 16:23 Received Medical Decision Narrative: Ozzie Paz is a 25 female with a history of anxiety, depression, ADHD, on atomoxetine and hydroxyzine who presents to the emergency department for complaints of suicidal ideation. Patient states that over the last 2 weeks that she has felt like shit and has been more depressed. She has thoughts of wanting to kill herself via overdose but has not attempted to overdose. She has not attempted to harm herself physically in any way throughout this time period. She does note that she is seen by therapist/mentor and spoke with them today and they recommended she come to the emergency department. Patient denies any auditory or visual hallucinations. Patient denies any abdominal pain, chest pain, nausea, vomiting, diarrhea or urinary symptoms. She reports that she has never attempted to harm herself in the past. She does report increased stress at work, with school and with friends. On arrival, patient is hemodynamically stable, no acute distress. Physical exam reveals no cardiopulmonary abnormalities. Abdomen soft, nontender nondistended. She has a flat affect and depressed mood. She has active suicidal ideation but denies homicidal ideation and is not responding to internal stimuli. Patient does state that she occasionally drinks alcohol but is not drink anything recently over the past couple weeks per she denies any drug use or tobacco use. Will obtain hematologic labs as well as urine studies to rule out metabolic, electrolyte, infectious explanation for patient's increased depressive symptoms. UDS is negative. test is negative. Urinalysis without evidence of infection. Electrolytes within normal limits. Mildly elevated anion gap of 19.7 but no ADAM. Liver enzymes and bilirubin within normal limits. Patient is medically cleared and would be appropriate for evaluation at [facility] due to her active suicidal ideation. Will discuss patient's case with transfer center. I discussed patient's case with Dr. Mata who spoke with SNEHAL at [facility] who accepted the patient for evaluation and likely admission. Patient's diagnosis is suicidal ideation with active plan. Patient will be transported via EMS to [facility] for further management. Critical Care Critical Care Time Critical Care Time: No
--- NOTE | 2025-08-06 16:25 | PC.NURSE ---
1:1 initiated upon arrival to emergency room.
--- OUTSIDE RECORDS SUMMARY | 2025-08-06 16:33 | XMS_ITS | Clinical Summary ---
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 Not on file 05/2023 Does Anyone Keep You from Co ntacting Others or Doint Things Outside the Home? Not on file 06/20/2023 Physical Sign of Abuse Present Not on file 1 Housing Stability Answer Date Recorded Current Living Arrangements Not on file 05/2023 Potentially Unsafe Housing Conditions Not on evaristo e 06/20/2023 Family and Community Support Answer Norman e Recorded Help with Day-to-Day Activities Not on file 06/20/2023 Lonely or Isolated Not on file 06/20/2023 Employment Answer Date Recorded Do you want help finding or keeping work or a kavya b? Not on file 06/20/2023 Disabilities Answer Date Recorded Concentrating, Remembering, or Making Decisions Difficulty Not on file 06/20/2023 Doing Errands Independently Difficulty Not on fi le 06/20/2023 Education Answer Date Recorded Help with school or training? Not on file Preferred Language Not on file 06/20/2023 Comments No Sex and Gender Information Value Date Recorded Sex Assigned at Not on file Legal Sex Female 10:26 AM EDT Gender Identity Not on file Sexual Orientation Not on file Last Filed Vital Signs Vital Sign Reading Time Taken Comments Blood Pressure 113/72 05/11/2022 2:14 PM EDT Pulse 48 05/11/2022 2:11 PM EDT Temperature 36.5 C (97.7 F) 05/11/2022 10:31 AM EDT Respiratory Rate 18 05/11/2022 12:23 PM EDT Oxygen Saturation 100% 05/11/2022 2:40 PM EDT Inhaled Oxygen Concentration - - Weight 47.6 kg (105 lb) 05/11/2022 10:31 AM EDT Height 165.1 cm (5' 5 ) 05/11/2022 10:31 AM EDT Body Mass Index 17.47 05/11/2022 10:31 AM EDT Plan of Treatment Health Maintenance Due Date Last Done Comments ANNUAL PHYSICAL 2002 Annual Gynecologic Pelvic an d Breast Exam 2002 HEPATITIS C SCREENING 2002 TDAP/TD VACCINES (2 - Td or Tdap) 04/19/2024 04/19/2014 INFLUENZA VACCINE 04/12/2025 08/09/2007, 08/09/2007 HPV VACCINES Completed 07/09/2015, 04/19/2014 MENINGOCOCCAL B VACCINE Completed 04/28/20, 03/31/2021 Pneumococcal Vaccine 0-49 Aged Out No longer eligible based on patient's age to complete this topic Insurance [place] [id number] [facility] Care Teams Cafe Helper Relationship Specialty Start Date End Date Provider, No Known [facility] [place] [address] PCP - General 05/11/22
--- OUTSIDE RECORDS SUMMARY | 2025-08-06 16:33 | XMS_ITS | Encounter Summary ---
Author Organization Healthcare Address [address] [place] [address] Care Team Providers Care Caser Name Role Phone Jessica Chilel Primary Care Provider [phone] Stu Latif TRIMMING CUTTER Unavailable [phone] Reason for Visit * Reason Comments Med Refill Encounter Details Date Type Department Care Team (Late st Contact Info) Description 11/13/2023 [facility]ill [facility] [address] [place] [address] Olimpia Dos Santos, COAL LOADER [address] [place] [address] Anxiety and depression; Anxiety disorder, unspecified type Social History Tobacco Use Types Packs/Day Years Used Date Smoking Tobacco: Never Smokeless Tobacco: Never Humiliation, Afraid, Rape, and Kick questionnair e Answer Date Recorded Within the last year, have y ou been afraid of your partner or ex-partner? No 11/04/2023 Within the last year, have y ou been humiliated or emotionally abused in other ways by your partner or ex-partner? No Within the last year, have y ou been kicked, hit, slapped, or otherwise physically hurt by your partner or ex-partner? No 11/04/2023 Within the last year, have y ou been raped or forced to have any kind of sexual activity by your partner or ex-partner? No 11/04/2023 PHQ-2 Answer Date Recorded Patient Health Questionnaire-2 Score 4 04/27/2022 Hunger Vital Sign Answer Date Recorded Within the past 12 months, y ou worried that your food would run out before you got the money to buy more. Sometimes true Within the past 12 months, t he food you bought just didn't last and you didn't have money to get more. Sometimes true PRAPARE - Transportation Answer Date Re corded In the past 12 months, has l ack of transportation kept you from medical appointments or from getting medications? Yes 10/14 In the past 12 months, has l ack of transportation kept you from meetings, work, or from getting things needed for daily living? Yes 11/04/2023 Housing Stability Vital Sign Answer Norman e Recorded In the last 12 months, was t here a time when you were not able to pay the mortgage or rent on time? No 11/04/2023 In the last 12 months, how many places have you lived? 2 11/04/2023 In the last 12 months, was t here a time when you did not have a steady place to sleep or slept in a retirement (including now)? No 11/04/2023 Utilities Answer Date Recorded In the past 12 months has th e electric, gas, oil, or water company threatened to shut off services in your home? No 11/04/2023 PHQ-2A Answer Date Recorded Depression Risk 4 09/13/2023 PHQ-9A Answer Date Recorded Depression Risk Score 12 09/13/2023 Comments Unknown Sex and Gender Information Value Date Recorded Sex Assigned at Not on file Legal Sex Female 8:37 PM EDT Gender Identity Not on file Sexual Orientation Not on file documented as of this encounter Miscellaneous Notes * Telephone Encounter - Ranulfo Neal RN - 11/14/2023 11:19 AM EST Called and LVM documented in this encounter Plan of Treatment Not on file documented as of this encounter Visit Diagnoses Diagnosis Anxiety and depression Anxiety disorder, unspecified type documented in this encounter Additional Health Concerns Assessment Noted Time PHQ-9 Depression Total Score: 15 022 10:00 AM EDT A fall risk assessment has been complete d for the patient 04/21/2023 9:26 AM EDT A Body Mass Index follow-up plan has been documented for the patient 09/13/2023 10:09 AM EST documented as of this encounter Care Teams Caser Relationship Specialty Start Date End Date Jessica Chilel PA [facility] [address] [place] [address] PCP - General 04/28/21 Stu Latif LCSW [address] [facility] [address] [place] [id number] [employer] Adolescent Medicine 04/22/22 documented as of this encounter
--- OUTSIDE RECORDS SUMMARY | 2025-08-06 16:33 | XMS_ITS | Patient Health Record ---
[facility] [address] [place] [id number] Care Team Providers Care Sanitation Manager Name Role Phone Darek Mg Primary Care Provider CarlosJessica costa Unavailable [phone] Allergies Allergen (clinical drug ingredient) Drug/Non Drug Allergy documented on EMR Reaction Allergy Type Onset Date Status amoxicillin Amoxicillin itching/welts Drug Allergy Active Medicinal cephalosporin and acting as antibacterial agent (FN) Cephalosporins rash Drug Allergy Active Medications Medication SIG (Take, Route, Frequency, Duration) [...] Duration: 30 days pt needs appt Active Immunizations Vaccine Route Administration Date Status Comme nts COVID 19 Narayan IM Intramuscular 11/19/2020 Administered COVID 19 Moderna Unknown 08/28/2021 Administered Hep A- Pediatric IM Intramuscular 04/19/2014 Administered Hep A- Pediatric IM Intramuscular 03/02/2018 Administered HEPB VACC PED/ADOL DOSE IM Unknown 2002 Administe red HIB Unknown 02/01/2003 Administered HIB Unknown 03/29/2003 Administered IPV Unknown 2002 Administered IPV Unknown 07/30/2003 Administered IPV IM Intramuscular 05/29/2008 Administered Menactra IM Intramuscular 04/19/2014 Administered Menactra Unknown 03/31/2021 Administered MMR SC Subcutaneous 05/05/2007 Administered MMR IM Intramuscular 05/29/2008 Administered Tetanus Dtap-Daptacel (under 7yrs) IM Intramuscular 05/05/2007 Administered Tetanus Dtap-Daptacel (under 7yrs) IM Intramuscular 05/29/2008 Administered Tetanus Tdap-Adacel (over 7yrs) IM Intramuscular 04/19/2014 Administered Varivax Unknown 07/30/2003 Administered Varivax IM Intramuscular 05/29/2008 Administered xGardasil IM Intramuscular 04/19/2014 Administered xGardasil IM Intramuscular 07/09/2015 Administered Problems Problem Type SNOMED Code ICD Code Onset Dates Problem Status W/U Status Risk Notes Problem Hypoglycemia (591825802) Hypoglycemia (E16.2) Active confirmed Problem Panic disorder (002281271) Panic attacks (F41.0) Active confirmed Problem Attention deficit hyperactivity disorder (244496247) Attention deficit hyperactivity disorder (ADHD), unspecified ADHD type (F90.9) Active confirmed Problem Muscle twitch (finding) (46130613) Muscle twitching (R25.3) Active confirmed Problem Allergic rhinitis (37838039) Allergic rhinitis, unspecified seasonality, unspecified trigger (J30.9) Active confirmed Vital Signs Heart Rate 58 /min 06/27/2025 Blood pressure diastolic 76 mm Hg 06/27/2025 Height 64.50 in 06/27/2025 Blood pressure systolic 102 mm Hg 06/27/2025 Weight 104.2 lbs 06/27/2025 BMI 17.61 kg/m2 06/27/2025 Encounters Encounter Location Date Provider Diagnosis [facility] [address] [facility] [address] [place], [place] [id number] 08/08/2024 Jessica Chilel Attention deficit hyperactivity disorder (ADHD), unspecified ADHD type F90.9 and Panic attacks F41.0 [facility] [address] [facility] [address] [place], [place] [id number] 08/29/2024 Jessica Chilel Attention deficit hyperactivity disorder (ADHD), unspecified ADHD type F90.9 and Panic attacks F41.0 [facility] [address] [facility] [address] [place], [place] [id number] 06/27/2025 Jessica Chilel Rash R21 and Attenti on deficit hyperactivity disorder (ADHD), unspecified ADHD type F90.9 [facility] [address] [place], [place] [id number] 10/03/2024 Darek Simpson Panic attacks F41.0 and Attention deficit hyperactivity disorder (ADHD), unspecified ADHD type F90.9 [facility] [address] [facility] [address] [place], [place] [id number] 06/25/2025 Darek Simpson Assessments Encounter Date Diagnosis (ICD Code) Assessment Notes Treatment Notes Treatment Clinical Notes Section Notes 08/08/2024 Panic attacks (ICD-10 - F41.0) Will only take hydroxyzine if she has a panic attack. She was taking it once a day in the past and it was making her tired. 08/08/2024 Attention deficit hyperactivity disorder (ADHD), unspecified ADHD type (ICD-10 - F90.9) Was on strattera in the past and did well with it. Will start back on this and see how she does. May have to add prozac as well as this was the combo she was taking in the past. 08/29/2024 Panic attacks (ICD-10 - F41.0) 08/29/2024 Attention deficit hyperactivity disorder (ADHD), unspecified ADHD type (ICD-10 - F90.9) Doing well. Will take it with food. Will f/u in 3 months. 10/03/2024 Panic attacks (ICD-10 - F41.0) 06/27/2025 Rash (ICD-10 - R21) 06/27/2025 Attention deficit hyperactivity disorder (ADHD), unspecified ADHD type (ICD-10 - F90.9) Gave samples of medication. If this works she will call and I will send a rx. 10/03/2024 Attention deficit hyperactivity disorder (ADHD), unspecified ADHD type (ICD-10 - F90.9) Plan Of Treatment Next Appt Details Provider Name:Jessica agosto, 08/28/2025 10:00:00 AM, [address] [facility], [place], [place], [id number], Insurance Providers Payer Name Payer Address Payer Phone Subscriber Number Group Number Insured Name Patient Relationship to Insured Coverage Start Date [facility]age End Date [facility] [address] SHANI PICKETT [id number] NORMA CABALLERO Self - patient is the insured Medical (General) History Medical History History ICD Code Leukemia- Remission 10/2006 Depression Anxiety ADHD Surgical History Surgery Date(Month/Year) Spinal Tap- ultiple Bone Marrow Biopsy x 2 Shoulder Port Placement 07/2004 Port Removed 01/2007 Hospitalization History Reason Date(Month/Year) Passing Out- [facility] ER 02/29/2020
--- OUTSIDE RECORDS SUMMARY | 2025-08-06 16:33 | XMS_ITS | Encounter Summary ---
Author Organization Healthcare Address [address] [place] [address] Care Team Providers Care Supervisor Pairing And Inspecting Name Role Phone Atul Tai MD Primary Care Provider + [phone] Jessica Chilel Primary Care Provider [phone] Stu Latif CITY DISTRIBUTION CLERK Unavailable [phone] Reason for Visit * Reason Onset Date Comments Med Refill Med Refill 03/03/2021 Encounter Details Date Type Department Care Team (Late st Contact Info) Description 02/28/[address] [facility] Adolescent Medicine [address] [place] [address] Haydee Bravo, NOELLE [address] [place] [address] Social History Tobacco Use Types Packs/Day Years Used Date Smoking Tobacco: Never Comments Unknown Sex and Gender Information Value Date Recorded Sex Assigned at Not on file Legal Sex Female 8:37 PM EDT Gender Identity Not on file Sexual Orientation Not on file documented as of this encounter Miscellaneous Notes * Telephone Encounter - Tamara Salgado RN - 03/02/2021 9:29 AM EDT Approving, but needs appt for additional refills. documented in this encounter Plan of Treatment Not on file documented as of this encounter Visit Diagnoses Not on filedocumented in this encounter Care Teams Supervisor Pairing And Inspecting Relationship Specialty Start Date End Date Atul Tai MD [address] [facility] [address] [place] [address] PCP - General 01/23/21 04/27/21 Jessica Chilel PA [address] [facility] [address] [facility] [address] [place] [id number] PCP - General 04/28/21 Stu Latif, CITY DISTRIBUTION CLERK [address] [facility] [address] [id number] Barrel Charrer Helper Adolescent Medicine 04/22/22 documented as of this encounter
--- OUTSIDE RECORDS SUMMARY | 2025-08-06 16:33 | XMS_ITS | Clinical Summary ---
Author Organization [facility] Address [address] [place] [address] Care Team Providers Care High Density Press Laborer Name Role Phone Jessica Chilel PA-C Primary Care Provider [phone] Source Comments [facility] is fully rolled out with thefollowing exceptions:General Clinical Research [facility] Social History Tobacco Use Types Packs/Day Years Used Date Smoking Tobacco: Never Assessed Comments Unknown Sex and Gender Information Value Date Recorded Sex Assigned at Not on file Legal Sex Female 7:36 AM EDT Gender Identity Not on file Sexual Orientation Not on file Plan of Treatment Health Maintenance Due Date Last Done Comments MMR IMMUNIZATION (1 of 1 - S tandard series) 2003 DTAP/Tdap/Td IMMUNIZATION (1 - Tdap) 2009 VARICELLA IMMUNIZATION (1 of 2 - 13+ 2-dose series) 2015 HPV IMMUNIZATION (1 - 3-dose series) 2017 MENINGOCOCCAL B VACCINE (1 o f 2 - Standard) 2018 HEPATITIS B IMMUNIZATION (1 of 3 - 19+ 3-dose series) 2021 AMB SEASONAL FLU VACCINE (#1) 05/13/2025 COVID-19 Vaccine ( - 2024-2 6 season) 2025 HIB IMMUNIZATION Aged Out No longer e ligible based on patient's age to complete this topic IPV IMMUNIZATION Aged Out No longer e ligible based on patient's age to complete this topic MCV4 IMMUNIZATION Aged Out No longer eligible based on patient's age to complete this topic PNEUMOCOCCAL IMMUNIZATION Aged Out No longer eligible based on patient's age to complete this topic Respiratory Syncytial Virus (RSV) <20mo Aged Out No longer eligible b ased on patient's age to complete this topic Insurance [facility] Care Teams High Density Press Laborer Relationship Specialty Start Date End Date Jessica Chilel PA-C [address] [place] [address] PCP - General 03/18/20
--- OUTSIDE RECORDS SUMMARY | 2025-08-06 16:33 | XMS_ITS | Clinical Summary ---
Author Organization Healthcare Address [address] [place] [address] Care Team Providers Care Fisher Seal Name Role Phone Jessica Chilel Primary Care Provider [phone] Stu Latif LUMBER TALLIER Unavailable [phone] Allergies Active Allergy Reactions Criticality Noted Date Comments Amoxicillin Unknown - Patient st ates they do not know rxn details Low 03/04/2017 Cefepime Unknown - Patient st ates they do not know rxn details Low 01/10/2015 Ceftriaxone Unknown - Patient st ates they do not know rxn details Low 01/10/2015 Other Hives Medium 04/28/2021 Cats Medications Loratadine (Claritin) 10 MG capsule 1 tab(s) orally once a day, As Needed Active Vienva 0.1-20 MG-MCG tablet Take by mouth 1 (one) time each day. 1 Active atomoxetine (Strattera) 40 MG capsule Take 1 capsule (40 mg) by mouth 1 (one) time each day. Swallow capsule whole; do not open. If opened accidentally, do not touch eyes; wash hands immediately (product is an eye irritant). Active hydrOXYzine HCl (Atarax) 25 MG tabletIndication s:Anxiety disorder, unspecified type Take 1 tablet (25 mg) by mouth 3 (three) times a day if needed for anxiety. 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 16 Overview (03/03/2021): Acute lymphoblastic leukemia, in remission Resolved Problems Problem Noted Date Diagnosed Date Resolved Date Vasovagal symptom 04/02/2020 06/02/2025 Syncope 03/25/2020 06/02/2025 Immunizations Immunization Administration Dates Next Due DTaP / Hep B / IPV 02/01/2003 DTaP, Unspecified 05/29/2008, 7,03/29/2003,11/29 HPV, Quadrivalent 07/09/2015,04/19/2014 Hep A, ped/adol, 2 dose 03/02/2018,04/19/2014 Hep B, Adolescent or Pediatric 2002 Hib (PRP-OMP) 03/29/2003,02/01/2003 Hib / Hep B 2002 IPV 05/29/2008,07/30/2003,2002 Influenza, Unspecified 08/09/2007 Influenza, seasonal, injectable 08/09/2007 [employer] COVID-19 Vaccine (Bl ue Cap) 18+ 11/19/2020 MMR 05/29/2008,05/05/2007 Meningococcal B, Omv 04/28/2021,03/31/2021 Meningococcal MCV4, Unspecified 04/19/2014 Meningococcal MCV4P 03/31/2021 Tdap 04/19/2014 Varicella 05/29/2008,07/30/2003 Family History Medical History Relation Name Comments Breast cancer Other FH: breast can cer Relation Name Status Comments Other Social History Tobacco Use Types Packs/Day Years [...] place to sleep or slept in a long term (including now)? No 11/04/2023 Utilities Answer Date [...] Sign Reading Time Taken Comments Blood Pressure 102/72 04/21/2023 9:23 AM EDT Pulse 96 09/13/2023 9:31 AM EST Temperature 36.6 C (97.8 F) 09/13/2023 9:31 AM EST Respiratory Rate - - Oxygen Saturation 98% 04/28/2021 8:41 AM EDT Inhaled Oxygen Concentration - - Weight 46.2 kg (101 lb 13.6 oz) 09/13/2023 9:31 AM EST Height 162.6 cm (5' 4 ) 09/13/2023 9:31 AM EST Body Mass Index 17.48 09/13/2023 9:31 AM EST Plan of Treatment Health Maintenance Due Date Last Done Comments [facility]-HIV Screening 2002 [facility]-Hepatitis C Screening 2002 [facility]-Infant/Child/Adol SDOH Screenings 2002 HPV Vaccines (3 - Risk 3-dose series) 11/09/2015 07/09/2015, 04/19/2014 [facility]- SDOH Screenings 2020 [facility]-Adult SDOH Screenings 2020 [facility]-Pneumococcal Vaccine: Pediatrics (0 to 5 Years) and At-Risk Patients (6 to 49 Years) (1 of 2 - PCV) 2021 [facility]-Zoster Vaccines (1 of 2) 2021 05/29/2008, 07/30/2003 [facility]-Pap Smear 2023 10/17/2006, 07/14, 05/17/2006, Additional history exists [facility]-DTaP,Tdap,and Td Vaccines (7 - Td or Tdap) 04/19/2024 04/19/2014, 05/29/2008, 05/05/2007, Additional history exists [facility]-Depression Screening 09/13/2024 024, 09/13/2023, 04/27/2022, Additional history exists [id number]-[id number]-30 Vaccine (3 - season) 2025 08/28/2021, 11/19/2020 [facility]-Influenza Vaccine (#1) 2025 08/09/2007, [facility]-Hepatitis B Vaccines Completed 003, 2002, 2002 [facility]-HIB Vaccines Aged Out 03/29/2003, , 2002 No longer eligible based on patient's age to complete this topic [facility]-IPV Vaccines Completed 05/29/2008, , 02/01/2003, Additional history exists [facility]-Varicella Vaccines Completed 05/29/2008, 2002 [facility]-Hepatitis A Vaccines Completed 03/02/2018, 04/2014 [facility]-Rotavirus Vaccines Aged Out No lo nger eligible based on patient's age to complete this topic Procedures Procedure Name Priority Date/Time Associated Diagnosis Comments CYTO DATA CONVERSION Routine 10/17/2006 12:00 AM EST from Last 3 Months or Most Recently Relevant to Health Maintenance Results * Cytology (10/17/2006 12:00 AM EST) 10/17/2006 10/18/2006 11: 24 AM EST Narrative SUNQUEST - 10/18/2006 1:26 PM EST [facility] MR #: [id number] [facility] [place] [address] 2000 (Age: 6) FW Collect Date: 10/17/2006 00:00 Receipt Date: 10/18/2006 11:24 Page 1 DEPARTMENT OF PATHOLOGY AND LABORATORY MEDICINE CYTOPATHOLOGY REPORT Email: [email or web address] ATTENDING MD/Practitioner: Cassandra Carrington MD Service: [facility] Location: [facility] OTHER MD(S): Kenneth Avila MD Reported: 10/18/2006 13:26 Collected: 10/17/2006 00:00 DIAGNOSIS A. CSF (LL SPIN): NO EVIDENCE OF MALIGNANCY. RARE MONONUCLEAR CELLS. Electronically Signed Out Verona Holloway MD PROCEDURES/ADDENDA CLINICAL INFORMATION: CLINICAL DIAGNOSIS ALL SPECIMEN DESCRIPTION: A: CSF (LL SPIN) SLIDES RECEIVED ICD: 204.00 ACUTE LYMPHOID LEUKEMIA W/O MENTION OF HAVING ACHIEVED REMISSION F: A; 15450 LLSPIN SNOMED CODES: A; [id number] A resident has participated in this service. A pathologist has performed and is responsible for the reported pathologic evaluation. us Randall Carrington MD LAB PATHOLOGY ORDERABLES Final R esult SUNQUEST from Last 3 Months or Most Recently Relevant to Health Maintenance Insurance [employer] Care Teams Fisher Seal Relationship Specialty Start Date End Date Jessica Chilel PA [facility] [address] [place] [address] PCP - General 04/28/21 Stu Latif LCSW [address] [facility] [address] [place] [address] Garnett Feeder Adolescent Medicine 04/22/22
--- OUTSIDE RECORDS SUMMARY | 2025-08-06 16:33 | XMS_ITS | Encounter Summary ---
Author Organization Healthcare Address [address] [place] [address] Care Team Providers Care Courtroom Deputy Or Calendar Clerk Name Role Phone Atul Tai MD Primary Care Provider + [phone] Jessica Chilel Primary Care Provider [phone] Stu Latif LCSW Unavailable [phone] Reason for Visit * Reason Comments Med Refill Encounter Details Date Type Department Care Team (Late st Contact Info) Description 03/23/2021 Refill [facility] [address], [address] [place] [id number] Haydee Bravo, COIL CUTTER [address] [place] [address] Social History Tobacco Use Types Packs/Day Years Used Date Smoking Tobacco: Never Smokeless Tobacco: Never Comments Unknown Sex and Gender Information Value Date Recorded Sex Assigned at Not on file Legal Sex Female 8:37 PM EDT Gender Identity Not on file Sexual Orientation Not on file COVID-19 Exposure Response Date Recorded In the last month, have you been in contact with someone who was confirmed or suspected to have Coronavirus / COVID-19? No / Unsure 03/17/2021 1:56 PM EDT documented as of this encounter Functional Status * Calculated C-SSRS Risk Score (Lifetime/Recent) Answer Date of Assessment Author No Risk Indicated 03/26/2021 1:42 PM EDT Stu Latif LCSW * Question Answer Date of Assessment Author 1. Wish to be (Past 1 Month) No 021 1:42 PM EDT Stu Latif LCSW 2. Non-Specific Active Suici alfredo Thoughts (Past 1 Month) No 03/26/2021 1:42 PM EDT Stu Latif LCSW 6. Suicidal Behavior (Lifetime) No 1:42 PM EDT Stu Latif LCSW documented as of this encounter Plan of Treatment Not on file documented as of this encounter Visit Diagnoses Not on filedocumented in this encounter Additional Health Concerns Assessment Noted Time A fall risk assessment has been complete d for the patient 03/11/2021 7:48 AM EDT documented as of this encounter Care Teams Courtroom Deputy Or Calendar Clerk Relationship Specialty Start Date End Date Atul Tai MD [address] [facility] [address] [facility] [address] [place] [address] PCP - General 01/23/21 04/27/21 Jessica Chilel PA [address] [place] [address] PCP - General 04/28/21 Stu Latif LCSW [address] [facility] [address] [place] [address] Home Restoration Service Supervisor Adolescent Medicine 04/22/22 documented as of this encounter
--- OUTSIDE RECORDS SUMMARY | 2025-08-06 16:33 | XMS_ITS | Encounter Summary ---
Author Organization Healthcare Address [address] [place] [address] Care Team Providers Care Electric Power Line Examiner Name Role Phone Jessica Chilel Primary Care Provider [phone] Stu Latif FLOORING SALES MANAGER Unavailable [phone] Reason for Visit * Reason Comments Med Refill Encounter Details Date Type Department Care Team (Late st Contact Info) Description 10/12/2023 Refill [facility] [address] [place] [address] Olimpia Dos Santos, SALES AGENT [employer] [address] [place] [address] Anxiety and depression; Anxiety disorder, unspecified type Social History Tobacco Use Types Packs/Day Years Used Date Smoking Tobacco: Never Smokeless Tobacco: Never PHQ-2 Answer Date Recorded Patient Health Questionnaire-2 Score 4 04/27/2022 PHQ-2A Answer Date Recorded Depression Risk 4 09/13/2023 PHQ-9A Answer Date Recorded Depression Risk Score 12 09/13/2023 Comments Unknown Sex and Gender Information Value Date Recorded Sex Assigned at Not on file Legal Sex Female 8:37 PM EDT Gender Identity Not on file Sexual Orientation Not on file documented as of this encounter Miscellaneous Notes * Telephone Encounter - Sonya Pro LPN - 10/18/2023 4:40 PM EST [employer] message sent documented in this encounter Plan of Treatment [...] documented as of this encounter Care Teams Electric Power Line Examiner Relationship Specialty Start Date End Date Jessica Chilel PA [facility] [address] [place] [address] PCP - General 04/28/21 Stu Latif LCSW [address] [facility] [address] [place] [address] Set Up Operator Tool Adolescent Medicine 04/22/22 documented as of this encounter
--- OUTSIDE RECORDS SUMMARY | 2025-08-06 16:33 | XMS_ITS | Referral Summary ---
Author Organization [facility] ([place], [place], [place], [place], [place]) Address [address] [place] [address] Care Team Providers Care Assistance Representative Name Role Phone Thomas Salazar Primary Care Provider [phone] Allergies Active Allergy Reactions Criticality Noted Date Comments Ceftriaxone Rash Low 05/11/2022 Medications cloNIDine HCL (CATAPRES) 0.1 MG tablet Take 0.1 mg by mouth daily. Active fLUoxetine (PROzac) 20 MG capsule Take 20 mg by mouth 2 (two) times daily with breakfast and lunch. Active levonorgestrel- ethinyl estradiol (AVIANE,ALESSE, LESSINA) 0.1-20 mg-mcg per tablet Take 1 tablet by mouth daily. Active hydrOXYzine (ATARAX) 25 MG tablet Take 1 tablet (25 mg total) by mouth 3 (three) times daily as needed. 4 Active sertraline (ZOLOFT) 25 MG tablet Take 1 tablet (25 mg total) by mouth daily. 4 Active Social History Tobacco Use Types Packs/Day Years Used Date Smoking Tobacco: Never Smokeless Tobacco: Never Tobacco Cessation:Counseling Given: Not Answered Alcohol Use Standard Drinks/Week Comments Never 0 (1 standard drink = 0.6 oz pur e alcohol) Food Insecurity Answer Date Recorded Food run out past 12 months Not on file 09/12 Food did not last past 12 months Not on file 09/21/2023 Employment Answer Date Recorded Help finding and keeping a job Not on file 0 09/21/2023 Family and Community Support Answer Norman e Recorded Help with Day to Day Activities Not on file 09/21/2023 Feeling Lonely or Isolated Not on file 09/21 Educational Attainment Answer Date Akil rded Speak language other than Occitan at home Not on file 09/21/2023 Want help with school or training Not on file 09/21/2023 Substance Use Answer Date Recorded Used prescription meds for non-medical reasons N ot on file 09/21/2023 Used illegal drugs past 12 months Not on file 09/21/2023 Comments Unknown Sex and Gender Information Value Date Recorded Sex Assigned at Not on file Legal Sex Female 4:03 PM CDT Gender Identity Not on file Sexual Orientation Not on file Last Filed Vital Signs Vital Sign Reading Time Taken Comments Blood Pressure 108/74 10/03/2023 10:48 AM EST Pulse 70 10/03/2023 10:44 AM EST Temperature - - Respiratory Rate 12 10/03/2023 10:44 AM EST Oxygen Saturation - - Inhaled Oxygen Concentration - - Weight 50.3 kg (111 lb) 10/03/2023 10:44 AM EST Height 165.1 cm (5' 5 ) 07/12/2022 2:17 PM EDT Body Mass Index 18.47 07/12/2022 2:17 PM EDT Plan of Treatment Not on file [facility] Care Teams Assistance Representative Relationship Specialty Start Date End Date Thomas Salazar PA [address] [place] [address] JU[place] Baez [phone] PCP - General Physician Personal Support Worker 07/12/22
--- OUTSIDE RECORDS SUMMARY | 2025-08-06 16:33 | XMS_ITS | Clinical Summary ---
Author Organization [employer] ([place], [place], [place], [place], [place]) Address [address] [place] [address] Care Team Providers Care Hammerer Tab Name Role Phone Thomas Salazar Primary Care Provider [phone] Allergies Active Allergy Reactions Criticality Noted Date [...] Date Akil rded Speak language other than Setswana at home Not on file 09/21/2023 Want [...] 07/12/2022 2:17 PM EDT Plan of Treatment Health Maintenance Due Date Last Done Comments Depression Screening (12+) 2014 HIV Screening 2017 Meningococcal B Vaccine (1 of 2 - Standard) 2018 Hepatitis C Screening 2020 Pap Smear 2023 DTAP/TDAP/TD VACCINES (7 - Td or Tdap) 04/19/2024 04/19/2014, 05/29/2008, 05/05/2007, Additional history exists Tobacco Cessation Counseling and Screening (12+) 10/03/2024 10/03/2023 COVID-19 VACCINE (3 - season) 2025 08/28/2021, 11/19/2020 Influenza Vaccine (#1) 2025 08/09/2007 Pneumococcal Vaccine: 0-49 Years Aged Out No longer eligible based on patient's age to complete this topic Insurance JUAN Mendoza [id number] [employer] [place] [place] Care Teams Hammerer Tab Relationship Specialty Start Date End Date Thomas Salazar PA [address] [place] [address] [place] Baez [phone] PCP - General Physician Master Craftsman 07/12/22
[2025-08-06 16:46] LABS: Microscopic, Urine URINE MICROSCOPIC (MICROSCOPIC)
[2025-08-06 16:49] LABS: Hematocrit 41.8 % (37.0-47.0); Hemoglobin 14.2 g/dL (12.2-16.2); Immature Granulocytes % 0.2 %; Mean Corpuscular HGB Conc 34.0 g/dL (31.8-35.4); Mean Corpuscular Hemoglobin 32.0 pg (27.0-31.2); Mean Corpuscular Volume 94.1 fl (81-99); Nucleated Red Blood Cells % 0 %; Platelet Count 343 K/mm3 (142-424); Red Blood Count 4.44 M/mm3 (4.20-5.40); Red Cell Distribution Width-SD 40.5 fL; White Blood Count 12.4 K/mm3 (4.8-10.8)
[2025-08-06 16:53] LABS: Bilirubin,Urine Negative (Negative); Color,Urine YELLOW (Yellow); Glucose,Urine (UA) Negative (Negative); Ketones,Urine 1+ (Negative); Leukocyte Esterase,Urine Negative (Negative); PH,Urine 6.5 (5.0-8.5); Protein,Urine Negative (Negative); Specific Gravity, Urine 1.020 (1.005-1.030); Urobilinogen,Urine 0.2 EU/dl (0.2)
[2025-08-06 16:55] LABS: Urine Pregnancy, HCG Qual. Negative (Negative)
[2025-08-06 16:58] LABS: Albumin Level 5.1 g/dl (3.5-5.0); Chloride 103 mmol/L (98-107); Potassium 3.7 mmoL/L (3.5-5.1); Sodium 141 mmol/L (136-145)
[2025-08-06 17:01] LABS: Alanine Aminotransferase 21 U/L (12-78); Albumin/Globulin Ratio 1.4 (1.1-1.8); Alkaline Phosphatase 26 U/L (38-126); Anion Gap 19.7 mEq/L (5-15); Aspartate Amino Transferase 32 U/L (14-36); Bilirubin,Total 0.5 mg/dl (0.2-1.3); Blood Urea Nitrogen 16 mg/dl (7-17); Calcium 9.5 mg/dl (8.4-10.2); Carbon Dioxide 22 mmol/L (22.0-30.0); Creatinine Clearance Estimated 70 mL/min (50-200); Creatinine,Serum 0.90 mg/dl (0.52-1.04); Estimated Glomerular Filt Rate 78 ml/min (>60); GFR (African American) 94 ML/MIN (>60); Globulin 3.6 g/dL (1.3-3.2); Glucose 88 mg/dl (74-100); Total Protein,Serum 8.7 g/dl (6.3-8.2)
[2025-08-06 17:08] LABS: Barbiturates Screen,Urine Negative ng/ml (<200)
[2025-08-06 17:09] LABS: Amphetamine/Metha Screen,Urine Negative ng/ml (<1000); Benzodiazepines Screen,Urine Negative ng/ml (<200)
[2025-08-06 17:10] LABS: Methadone Screen,Urine Negative ng/ml (<300)
[2025-08-06 17:12] LABS: Opiate Screen,Urine Negative ng/ml (<300); Phencyclidine Screen,Urine Negative ng/ml (<25)
[2025-08-06 17:19] LABS: Bacteria,Urine 2+ /lpf; Mucus,Urine 2+ /lpf; Squamous Epithelial Cell,Urine 20-50 #/hpf (0-5)
[2025-08-06 17:32] LABS: Thyroid Stimulating Hormone 1.46 uIU/mL (0.465-4.68)
--- NOTE | 2025-08-06 17:38 | PC.NURSE ---
[facility]
--- NOTE | 2025-08-06 18:18 | PC.NURSE ---
report called to [facility].
--- NOTE | 2025-08-06 18:51 | PC.NURSE ---
Called dispatch to see if they had an officer available to transfer this pt to [facility] due to the fact she would go voluntarily. Dispatch advised that they would see if they had somebody available make contact back with us
--- NOTE | 2025-08-06 19:17 | PC.NURSE ---
Pt awake alert and oriented Skin pink warm and dry Resp full and easy Speech clear and appropriate Sitter at bedside Awaiting transport
--- NOTE | 2025-08-06 19:29 | PC.NURSE ---
Gely from dispatch called and they are still trying to get ahold of [facility] for transport.
--- NOTE | 2025-08-06 20:39 | PC.NURSE ---
Addendum entered by Fernando Caal RN 08/06/25 20:40: Report received at 1900 Please change time on previous note timed 2039 Original Note: Report received from [facility] She states patient accepted and report called to [facility] Awaiting transport
--- NOTE | 2025-08-06 21:05 | PC.NURSE ---
Sitter at bedsidePt aware she is waiting on transport
--- NOTE | 2025-08-06 23:00 | PC.NURSE ---
IV D/C'd Pt transported to [facility] via ambulance by [facility]
== END 2025-08-06 23:03 | disposition other institution (70) ==
PROVIDERS: Emergency Provider Student in an Organized Health Care Education/Training Program; PCP Physician Assistant
DX: R45.851 Suicidal ideations (principal)
CPT/HCPCS: 80053; 80307; 81001; 81025; 84443; 85025; 87086; 99285